=== PATIENT | female | born 1960 | race Hispanic/Latino ===

== ENCOUNTER 2022-01-02 16:55 | Emergency (ER) | payer SELFPAY ==
[2022-01-02 17:18] VITALS: BP 156/62
--- NOTE | 2022-01-02 18:00 | XRay Report ---
XR chest routine 2V INDICATION / CLINICAL INFORMATION: TB rule out. COMPARISON: None available. FINDINGS: SUPPORT DEVICES: None. HEART /PULMONARY VASCULATURE: Cardiac loop recorder. Heart is not enlarged. LUNGS / PLEURA: Lungs are clear. No pleural effusion. No pneumothorax. ADDITIONAL FINDINGS: No significant additional findings. IMPRESSION: 1. No acute findings. Signer Name: Peng Higgins MD Signed: 01/02/2022 5:56 PM Workstation Name: [id number]
--- NOTE | 2022-01-02 21:52 | Emergency Department Report ---
HPI - General Chief Complaint: Dyspnea/Respdistress Time Seen by Provider: 01/02/22 21:20 - HPI HPI: Room 25 Patient is a 61-year-old female present with a chief complaint of fatigue, chest pain and cough. The patient states she recently moved from [place] and does not have Medicaid set up at this time. Patient states she has been without any of her medications including her Synthroid for the past 2 weeks. Patient states she has had a cough occasionally productive of yellow sputum for the past 2 months. Patient admits to rhinorrhea but denies history of fever. Patient states she contracted COVID in August 2021 was administered antibodies. Patient states she was never vaccinated against COVID. The patient states for the past 3 days she has had pleuritic chest pain. The patient states last week she noticed pain and swelling of her right ankle/calf with some bruising but has since improved. Patient denied any preceding trauma. The patient states she has felt fatigued for the past week. The patient mention she had "a reaction" 2 PPD approximate 2 years ago and was receiving annual chest x-rays which have all been negative. ED Past Medical Hx - Past Medical History Hx Hypertension: Yes Hx COPD: Yes (emphysema no home O2) Additional medical history: loop recorder, Hep C, osteoarthritis, high cholesterol, hypothyroidism, migraines, herpes II, - Surgical History Past Surgical History?: No Additional Surgical History: Cardiac loop recorder - Family History Family history: no significant - Social History Smoking Status: Current Every Day Smoker (1/3 pack/day) Substance Use Type: None (Denies illicit drug use) - Medications Home Medications: Home Medications Medication Instructions Recorded Confirmed Last Taken Type Aspirin 81 PO 01/02/22 Unknown History Chantix 01/02/22 Unknown History Methadone [Dolophine] 175 mg PO 01/02/22 Unknown History Valacyclovir HCl [Valacyclovir] 500 mg PO 01/02/22 Unknown History Vitamin D3 01/02/22 Unknown History AtorvaSTATin [Lipitor] 40 mg PO QDAY #30 01/03/22 Unknown Rx Azithromycin [Zithromax Z-NATALIO] 0 mg PO DAILY #6 tab 01/03/22 Unknown Rx Enalapril/Hydrochlorothiazide 1 each PO QDAY #60 01/03/22 Unknown Rx [Enalapril-Hctz 10-25 mg Tablet] Gabapentin 300 mg PO BID #60 01/03/22 Unknown Rx Levothyroxine 100 mcg PO QDAY #90 01/03/22 Unknown Rx SUMAtriptan SUCCINATE [Imitrex] 50 mg PO ONCE PRN #20 01/03/22 Unknown Rx Symbicort 160-4.5 Mcg Inhaler 1 dose INHALATION BID #1 01/03/22 Unknown Rx ED Review of Systems ROS: Stated complaint: FATIGUE,DAMON Other details as noted in HPI Constitutional: malaise. denies: fever Eyes: denies: eye pain ENT: denies: throat pain Respiratory: cough. denies: shortness of breath Cardiovascular: as per HPI Endocrine: no symptoms reported Gastrointestinal: denies: nausea Genitourinary: denies: dysuria Musculoskeletal: myalgia. denies: back pain Skin: change in color Neurological: denies: headache Physical Exam - Physical Exam Vital Signs: Vital Signs 01/02/22 17:03 Temperature 97.9 F Pulse Rate 77 Respiratory 20 Rate Blood Pressure 156/62 O2 Sat by Pulse 98 Oximetry Physical Exam: GENERAL: The patient is well-developed well-nourished female lying on stretcher not appearing to be in acute distress. [] HEENT: Normocephalic. Atraumatic. Extraocular motions are intact. Patient has moist mucous membranes. NECK: Supple. Trachea midline CHEST/LUNGS: Clear to auscultation. There is no respiratory distress noted. HEART/CARDIOVASCULAR: Regular. There is no tachycardia. There is no gallop rub or murmur. ABDOMEN: Abdomen is soft, nontender. Patient has normal bowel sounds. There is no abdominal distention. SKIN: There is no rash. There is no edema. There is no diaphoresis. NEURO: The patient is awake, alert, and oriented. The patient is cooperative. The patient has no focal neurologic deficits. The patient has normal speech. GCS 15 MUSCULOSKELETAL: There is trace discomfort to palpation of the right lower extremity. There is no evidence of acute injury. ED Course Vital Signs 01/02/22 17:03 Temperature 97.9 F Pulse Rate 77 Respiratory 20 Rate Blood Pressure 156/62 O2 Sat by Pulse 98 Oximetry - Reevaluation(s) Reevaluation #1: 01/02/22 23:[address] chest. I discussed with the patient her lab results and elevated D-dimer and my desire to exclude a pulmonary embolus. Patient verbalized understanding but states she does not wish to have a CAT scan performed. Patient verbalized understanding of increased risk of should she leave the hospital AGAINST MEDICAL ADVICE. Patient advised to return to the ED for further evaluation should she change her mind ED Medical Decision Making - Lab Data Result diagrams: 01/02/22 22:02 01/02/22 22:02 Lab Results 01/02/22 01/02/22 01/02/22 Range/Units 22:02 22:02 22:02 WBC 7.3 (4.5-11.0) K/mm3 RBC 4.46 (3.65-5.03) M/mm3 Hgb 14.1 (10.1-14.3) gm/dl Hct 43.1 H (30.3-42.9) % MCV 97 (79-97) fl MCH 32 (28-32) pg MCHC 33 (30-34) % RDW 13.7 (13.2-15.2) % Plt Count 193 (140-440) K/mm3 Lymph % (Auto) 54.4 H (13.4-35.0) % [place] % (Auto) 6.1 (0.0-7.3) % Eos % (Auto) 1.8 (0.0-4.3) % Baso % (Auto) 1.0 (0.0-1.8) % Lymph # (Auto) 4.0 (1.2-5.4) K/mm3 [place] # (Auto) 0.4 (0.0-0.8) K/mm3 Eos # (Auto) 0.1 (0.0-0.4) K/mm3 Baso # (Auto) 0.1 (0.0-0.1) K/mm3 Seg Neutrophils % 36.7 L (40.0-70.0) % Seg Neutrophils # 2.7 (1.8-7.7) K/mm3 D-Dimer 328.97 H (0-234) ng/mlDDU Sodium 141 (137-145) mmol/L Potassium 3.5 L (3.6-5.0) mmol/L Chloride 105.7 (98-107) mmol/L Carbon Dioxide 26 (22-30) mmol/L Anion Gap 13 mmol/L BUN 18 H (7-17) mg/dL Creatinine 1.0 (0.6-1.2) mg/dL Estimated GFR 56 ml/min BUN/Creatinine Ratio 18 % Glucose 85 (65-100) mg/dL Calcium 9.7 (8.4-10.2) mg/dL Total Creatine Kinase 91 (30-135) units/L CK-MB (CK-2) 2.6 (0.0-4.0) ng/mL CK-MB (CK-2) Rel Index 2.8 (0-4) Troponin T < 0.010 (0.00-0.029) ng/mL NT-Pro-B Natriuret Pep 165.5 (0-900) pg/mL TSH (0.270-4.200) mlU/mL Free T4 (0.76-1.46) ng/dL 01/02/22 Range/Units 22:02 WBC (4.5-11.0) K/mm3 RBC (3.65-5.03) M/mm3 Hgb (10.1-14.3) gm/dl Hct (30.3-42.9) % MCV (79-97) fl MCH (28-32) pg MCHC (30-34) % RDW (13.2-15.2) % Plt Count (140-440) K/mm3 Lymph % (Auto) (13.4-35.0) % [place] % (Auto) (0.0-7.3) % Eos % (Auto) (0.0-4.3) % Baso % (Auto) (0.0-1.8) % Lymph # (Auto) (1.2-5.4) K/mm3 [place] # (Auto) (0.0-0.8) K/mm3 Eos # (Auto) (0.0-0.4) K/mm3 Baso # (Auto) (0.0-0.1) K/mm3 Seg Neutrophils % (40.0-70.0) % Seg Neutrophils # (1.8-7.7) K/mm3 D-Dimer (0-234) ng/mlDDU Sodium (137-145) mmol/L Potassium (3.6-5.0) mmol/L Chloride (98-107) mmol/L Carbon Dioxide (22-30) mmol/L Anion Gap mmol/L BUN (7-17) mg/dL Creatinine (0.6-1.2) mg/dL Estimated GFR ml/min BUN/Creatinine Ratio % Glucose (65-100) mg/dL Calcium (8.4-10.2) mg/dL Total Creatine Kinase (30-135) units/L CK-MB (CK-2) (0.0-4.0) ng/mL CK-MB (CK-2) Rel Index (0-4) Troponin T (0.00-0.029) ng/mL NT-Pro-B Natriuret Pep (0-900) pg/mL TSH 1.480 (0.270-4.200) mlU/mL Free T4 1.60 H (0.76-1.46) ng/dL - EKG Data -: EKG Interpreted by Me EKG shows normal: sinus rhythm, axis Rate: normal - EKG Data When compared to previous EKG there are: previous EKG unavailable Interpretation: normal EKG - Radiology Data Radiology results: report reviewed (Right lower extremity Doppler, chest x-ray), image reviewed (Right lower extremity Doppler, chest x-ray) interpreted by me: Chest x-ray-no definite focal infiltrates, no pneumothorax [facility] [address] [place] [address] Vascular Lab Report Signed Patient: CARLOS ADAMS MR#: [id number] : 1960 Acct:[id number] Age/Sex: 61 / F ADM Date: 01/02/22 Loc: ED Attending Dr: Ordering Physician: KENNEDY BRUSH MD Date of Service: 01/02/22 Procedure(s): VL venous duplex LE RT Accession Number(s): [id number] cc: KENNEDY BRUSH MD DUPLEX DOPPLER LOWER EXTREMITY VEINS, RIGHT INDICATION / CLINICAL INFORMATION: Pain and swelling. TECHNIQUE: Duplex doppler imaging was performed through the veins of the right lower extremity using venous compression and other maneuvers. COMPARISON: None available. FINDINGS: RIGHT COMMON FEMORAL VEI N: Negative. RIGHT FEMORAL VEIN: Negative. RIGHT POPLITEAL VEIN: Negative. RIGHT CALF VEINS: Negative. ADDITIONAL FINDINGS: None. IMPRESSION: 1. No sonographic evidence for DVT in the right lower extremity. Signer Name: Munir Higgins MD Signed: 01/02/2022 10:28 PM Workstation Name: [id number] Transcribed By: EDELMIRA Dictated By: MUNIR HIGGINS MD Electronically Authenticated By: MUNIR HIGGINS MD Signed Date/Time: 01/02/222227 DD/ 27 TD/TT: [facility] [address] [place] [address] XRay Report Signed Patient: CARLOS ADAMS MR#: [id number] : 1960 Acct:[id number] Age/Sex: 61 / F ADM Date: 01/02/22 Loc: ED Attending Dr: Ordering Physician: GENARO LE MD Date of Service: 01/02/22 Proc edure(s): XR chest routine 2V Accession Number(s): [id number] cc: ED MD REY Fluoro Time In Minutes: XR chest routine 2V INDICATION / CLINICAL INFORMATION: TB rule out. COMPARISON: None available. FINDINGS: SUPPORT DEVICES: None. HEART /PULMONARY VASCULATURE: Cardiac loop recorder. Heart is not enlarged. LUNGS / PLEURA: Lungs are clear. No pleural effusion. No pneumothorax. ADDITIONAL FINDINGS: No significant additional findings. IMPRESSION: 1. No acute findings. Signer Name: Munir Higgins MD Signed: 01/02/2022 5:56 PM Workstation Name: [id number] Transcribed By: EDELMIRA Dictated By: MUNIR HIGIGNS MD Electronically Authenticated By: MUNIR HIGGINS MD Signed Date/Time: 01/02/221755 DD/ 55 TD/TT: - Differential Diagnosis Bronchitis, pneumonia, COVID, hypothyroidism, PE, ACS, pleurisy, DVT Critical care attestation.: If time is entered above; I have spent that time in minutes in the direct care of this critically ill patient, excluding procedure time. ED Disposition Clinical Impression: Chest pain, Cough Disposition: 07 LEFT AGAINST MEDICAL ADVICE Is pt being admited?: No Does the pt Need Aspirin: No Condition: Undetermined Instructions: Nonspecific Chest Pain, Adult Additional Instructions: You have decided to leave the hospital AGAINST MEDICAL ADVICE. Please return to the emergency department for further evaluation should you change your mind return to the emergency department should you develop worsening symptoms, inability to tolerate food or liquids, high fever or any other concerns Prescriptions: Enalapril/Hydrochlorothiazide [Enalapril-Hctz 10-25 mg Tablet] 1 each PO QDAY #60 Gabapentin 300 mg PO BID #60 SUMAtriptan SUCCINATE [Imitrex] 50 mg PO ONCE PRN #20 PRN Reason: Migraine Headache Levothyroxine 100 mcg PO QDAY #90 AtorvaSTATin [Lipitor] 40 mg PO QDAY #30 Symbicort 160-4.5 Mcg Inhaler 1 dose INHALATION BID #1 Azithromycin [Zithromax Z-NATALIO] 0 mg PO DAILY #6 tab Referrals: [facility] [Provider Group] - 3-5 Days Time of Disposition: 00:03 (Patient leaving AMA)
--- NOTE | 2022-01-02 22:32 | Vascular Lab Report ---
DUPLEX DOPPLER LOWER EXTREMITY VEINS, RIGHT INDICATION / CLINICAL INFORMATION: Pain and swelling. TECHNIQUE: Duplex doppler imaging was performed through the veins of the right lower extremity using venous comp ression and other maneuvers. COMPARISON: None available. FINDINGS: RIGHT COMMON FEMORAL VEIN: Negative. RIGHT FEMORAL VEIN: Negative. RIGHT POPLITEAL VEIN: Negative. RIGHT CALF VEINS: Negative. ADDITIONAL FINDINGS: None. IMPRESSION: 1. No sonographic evidence for DVT in the right lower extremity. Signer Name: Peng Higgins MD Signed: 01/02/2022 10:28 PM Workstation Name: [id number]
[2022-01-02 22:43] LABS: Creatine Kinase MB 2.6 ng/mL (0.0-4.0)
[2022-01-02 22:44] LABS: BUN/Creatinine Ratio 18; Blood Urea Nitrogen 18 mg/dL (7-17); Calcium 9.7 mg/dL (8.4-10.2); Hemolysis Index 8
[2022-01-02 22:46] LABS: Basophils # (Auto) 0.1 K/mm3 (0.0-0.1); Eosinophils # (Auto) 0.1 K/mm3 (0.0-0.4); Eosinophils % (Auto) 1.8 % (0.0-4.3); Hematocrit 43.1 % (30.3-42.9); Hemoglobin 14.1 gm/dl (10.1-14.3); Lymphocytes % (Auto) 54.4 % (13.4-35.0); Mean Corpuscular HGB Conc 33 % (30-34); Mean Corpuscular Volume 97 fl (79-97); Monocytes # (Auto) 0.4 K/mm3 (0.0-0.8); Monocytes % (Auto) 6.1 % (0.0-7.3); Platelet Count 193 K/mm3 (140-440); Red Blood Count 4.46 M/mm3 (3.65-5.03); Red Cell Distribution Width 13.7 % (13.2-15.2)
[2022-01-02 22:51] LABS: Free T4 (Free Thyroxine) 1.6 ng/dL (0.76-1.46)
== END 2022-01-03 00:09 | disposition left against medical advice (07) ==
LOC: ED 16:55
DX: R07.9 Chest pain, unspecified (principal); R05.9 Cough, unspecified; I10 Essential (primary) hypertension; J44.1 Chronic obstructive pulmonary disease with (acute) exacerbation
CPT/HCPCS: 36415; 71046; 80048; 82550; 82553; 83880; 84439; 84443; 84484; 85025; 85379; 93005; 99284